=== PATIENT | male | born 1975 | race African-American/Black ===

== ENCOUNTER 2020-08-14 13:08 | Emergency (ER) | payer OTHER, SELFPAY ==
[~2020-08-14] VITALS: Ht 195.6 cm; Wt 109.0 kg
[2020-08-14] MEDS ORDERED: PERCOCET 5MG/325MG TAB PO ONE (13:45)
[2020-08-14 13:59] VITALS: BP 127/81
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
[2020-08-14] MEDS ORDERED: IBUP-1022 PO (14:28)
== END 2020-08-14 15:06 | disposition home or self-care (01) ==
LOC: M ED 13:08
DX: S50.12XA Contusion of left forearm, initial encounter (principal); S40.022A Contusion of left upper arm, initial encounter; V19.49XA Pedal cycle driver injured in collision with other motor vehicles in traffic accident, initial encounter; I10 Essential (primary) hypertension; K21.9 Gastro-esophageal reflux disease without esophagitis